=== PATIENT | female | born 1970 | race Asian ===

== ENCOUNTER 2018-07-29 10:26 | Outpatient (CLI) | payer OTHER | END 2018-07-29 10:34 | disposition home or self-care (01) | LOC: MAMO-SONO 10:26 | DX: Z12.31 Encounter for screening mammogram for malignant neoplasm of breast (principal); Z12.39 Encounter for other screening for malignant neoplasm of breast; N64.4 Mastodynia ==

== ENCOUNTER 2019-07-15 09:41 | Outpatient (CLI) | payer OTHER | END 2019-07-15 09:48 | disposition home or self-care (01) | LOC: SONOGRAMA 09:41 → MAMO-SONO 09:45 → SONOGRAMA 09:48 | DX: K76.0 Fatty (change of) liver, not elsewhere classified (principal) ==

== ENCOUNTER 2019-08-10 13:44 | Outpatient (CLI) | payer OTHER | END 2019-08-10 13:46 | disposition home or self-care (01) | LOC: RAD 13:44 | DX: R91.8 Other nonspecific abnormal finding of lung field (principal) ==

== ENCOUNTER 2020-03-13 13:20 | Outpatient (CLI) | payer OTHER | END 2020-03-13 13:37 | disposition home or self-care (01) | LOC: MAMO-SONO 13:20 | DX: Z12.31 Encounter for screening mammogram for malignant neoplasm of breast (principal); Z87.898 Personal history of other specified conditions; Z12.39 Encounter for other screening for malignant neoplasm of breast; N64.4 Mastodynia; M25.532 Pain in left wrist ==

== ENCOUNTER 2021-03-18 14:35 | Outpatient (CLI) | payer OTHER | END 2021-03-18 14:50 | disposition home or self-care (01) | LOC: MAMO-SONO 14:35 | PROVIDERS: ATTEND Obstetrics & Gynecology Gynecology | DX: Z12.31 Encounter for screening mammogram for malignant neoplasm of breast (principal); N64.4 Mastodynia ==

== ENCOUNTER 2022-08-14 13:16 | Outpatient (CLI) | payer OTHER | END 2022-08-14 13:26 | disposition home or self-care (01) | LOC: MAMO-SONO 13:16 | DX: Z12.31 Encounter for screening mammogram for malignant neoplasm of breast (principal); N64.4 Mastodynia ==

== ENCOUNTER 2023-10-15 12:02 | Outpatient (CLI) | payer OTHER | END 2023-10-15 12:17 | disposition home or self-care (01) | LOC: MAMO-SONO 12:02 | PROVIDERS: ATTEND Internal Medicine Hepatology | DX: R10.12 Left upper quadrant pain (principal); Z12.31 Encounter for screening mammogram for malignant neoplasm of breast; N64.4 Mastodynia ==

== ENCOUNTER → 2025-02-13 07:15 | Outpatient (CLI) | payer OTHER | END | disposition home or self-care (01) | LOC: MAMO-SONO 07:15 | DX: N64.4 Mastodynia (principal); Z12.31 Encounter for screening mammogram for malignant neoplasm of breast ==